=== PATIENT | male | born 1995 | race Caucasian/White ===

== ENCOUNTER → 2021-05-06 | Outpatient (CLI) | payer OTHER | LOC: KOH-I 14:37 | DX: S76.112A Strain of left quadriceps muscle, fascia and tendon, initial encounter (principal) | CPT/HCPCS: 73721 ==

== ENCOUNTER → 2022-03-26 | Outpatient (CLI) | payer OTHER | LOC: KOH-I 14:45 | DX: M22.02 Recurrent dislocation of patella, left knee (principal); S80.02XA Contusion of left knee, initial encounter; S76.112A Strain of left quadriceps muscle, fascia and tendon, initial encounter | CPT/HCPCS: 73721 ==